=== PATIENT | male | born 1940 | race Caucasian/White ===

== ENCOUNTER → 2016-04-21 | Outpatient (CLI) | payer OTHER ==
[~2016-04-21] MED LIST: AMLO-114 PO; CILO100T PO; COLC0.6T54 PO; DOXA2TAB PO; ENAL10TA88 PO; GLIP5TAB11 PO; HYDR-4079 PO; HYDR25TA4 PO; METF750T PO; METO50TA16 PO; TAMS0.4C38 PO; THIA100T13 PO
[2016-04-21 14:37] LABS: BLOOD UREA NITROGEN 16 mg/dl (7-18); BUN/CREATININE RATIO 12.5 (10-20); CALCIUM 9.3 mg/dl (8.5-10.1); CARBON DIOXIDE 29 mmol/L (21-32); CHLORIDE 104 mmol/L (98-107); GLUCOSE 142 mg/dl (70-99); POTASSIUM 3.9 mmol/L (3.5-5.1); SODIUM 141 mmol/L (136-145)
[2016-04-21 15:36] LABS: ESTIMATED AVERAGE GLUCOSE 108 mg/dl; HA1C FLAG Normal (Normal)
== END | disposition home or self-care (01) ==
LOC: C.LABMFLN 12:06
PROVIDERS: ATTEND Family Medicine
DX: E11.9 Type 2 diabetes mellitus without complications (principal); I10 Essential (primary) hypertension

== ENCOUNTER → 2016-07-02 | Outpatient (CLI) | payer OTHER ==
[2016-07-02 13:16] LABS: HEMATOCRIT 34.8 % (42-52); MEAN CELL VOLUME 97.5 fL (80-100); MEAN CORPUSCULAR HEMOGLOBIN 33.6 pg (25-34); MEAN CORPUSCULAR HGB CONC 34.5 g/dl (32-36); MEAN PLATELET VOLUME 9.9 fL (7.4-10.4); PLATELET COUNT 180 K/uL (130-400); RED BLOOD COUNT 3.57 M/uL (4.7-6.1); WHITE BLOOD COUNT 4.81 K/uL (4.8-10.8)
[2016-07-02 13:27] LABS: BLOOD UREA NITROGEN 19 mg/dl (7-18); BUN/CREATININE RATIO 14.7 (10-20); CALCIUM 9.2 mg/dl (8.5-10.1); CARBON DIOXIDE 26 mmol/L (21-32); CHLORIDE 104 mmol/L (98-107); GLUCOSE 127 mg/dl (70-99); POTASSIUM 4.5 mmol/L (3.5-5.1); SODIUM 136 mmol/L (136-145)
== END | disposition home or self-care (01) ==
LOC: C.LABMFLN 10:07
PROVIDERS: ATTEND Internal Medicine Interventional Cardiology
DX: Z01.818 Encounter for other preprocedural examination (principal)

== ENCOUNTER → 2016-07-14 | Day surgery (SDC) | payer OTHER ==
[~2016-07-14] VITALS: Ht 175.3 cm; Wt 105.5 kg
[2016-07-14] VITALS (8 sets, daily range): BP systolic 150–176; BP diastolic 73–88; PULSE 58–77; TEMP 36.6–36.8; O2SAT 94–98; Ht 175.3 cm; Wt 105.5 kg
[~2016-07-14] MED LIST changes: +ACETAMINOPHEN 325 MG TAB PO PRN; +FENTANYL CITRATE INJ 50 MCG/1 ML 2 ML VIAL IV ONE; +FENTANYL CITRATE INJ 50 MCG/1 ML 2 ML VIAL ONE; +HEPARIN SOD (PORCINE) 1000 UNIT/ML 10 ML VIAL ONE; +IODIXANOL (VISIPAQUE) 270 MG/ML 150ML IV ONE; +LIDOCAINE HCL 1% 20 ML VIAL SQ ONE; +MIDAZOLAM HCL 1 MG/ML 2ML VIAL IV ONE; +MIDAZOLAM HCL 5 MG/ML 1 ML VIAL ONE; +NITROGLYCERIN 5 MG/ML 10 ML VIAL ONE; +NITROGLYCERIN/D5W 100MCG/ML 20ML SYR ONE; +NiCARDipine HCL INJ 2.5 MG/ML 10 ML AMP ONE; +SODIUM CHLORIDE 0.9% 1000ML 1,000 ML IV SCH; +SODIUM CHLORIDE 0.9% 1000ML IV SCH
--- NOTE | 2016-07-14 07:54 | History and Physical ---
History & Physical Date Jul 14, 2016. History of Present Illness The patient is a 75 year old male with complaints of claudication. Patient with intermittent claudication Pia class 3 symptoms for months. Previously evaluated with U/S, CTA which showed suggestion of right inflow disease, and severe SFA/popliteal disease with severe arterial insufficiency by HOOD. No history of lower extremity wounds or pain at rest. No prior peripheral interventions. Lonstanding non-insulin dependent diabetes. Remote smoker. Past Medical/Surgical History carotid stenosis htn hld obesity ckd (last SCr 1.3) PAD DM2 Additional History Hepatic Disease: No Endocrine Disorder: Yes Kidney Disease: Yes Hypertension: Yes Heart Disease: No Bleeding Tendencies: No Infectious Diseases: No Allergies Coded Allergies: No Known Allergies (Verified , 07/14/16) Home Medications Scheduled Amlodipine (Norvasc), 10 MG PO DAILY Cilostazol (Pletal), 100 MG PO BID Colchicine (Colchicine), 0.6 MG PO BID Doxazosin Mesylate (Cardura), 1 TAB PO HS Enalapril (Vasotec), 20 MG PO BID Glipizide (Glucotrol), 0.5 TAB PO DAILY Hydrochlorothiazide (Hctz), 1 TAB PO DAILY Metformin Hcl (Glucophage Er), 750 MG PO BID Metoprolol Tartrate (Lopressor) (Lopressor), 75 MG PO BID Tamsulosin Hcl (Flomax), 2 CAP PO HS Thiamine Hcl (Vitamin B-1), 100 MG PO DAILY Scheduled PRN Hydrocodone/Acetaminophen 10MG/325MG ([place] 10MG/325MG), 1-2 TABS PO Q4H PRN for Pain Physical Examination Skin: warm/dry Eyes: normal inspection ENT: normal ENT inspection Head: normocephalic Neck: supple Respiratory/Chest: lungs clear Cardiovascular: regular rate, rhythm, no edema, no murmur Abdomen / GI: normal bowel sounds, non tender Back: normal inspection Extremities: normal inspection Neurologic/Psych: no motor/sensory deficits, alert Addiitonal Comments: 2+ left femoral pulse diminished right femoral, popliteal, dp/pt Diagnosis PAD Claudication ASA Classification: ASA Class II Plan of Treatment Bilateral peripheral angiogram with possible intervention.
--- NOTE | 2016-07-14 08:03 | Procedure Note ---
Pre-Mod Sedation Assessment General Date of Moderate Sedation: Jul 14, 2016. Vital Signs: Vital Signs Past 12 Hours Date Time Temp Pulse Resp B/P Pulse Ox O2 Delivery O2 Flow Rate FiO2 07/14/16 07:57 36.7 58 20 169/81 98 Room Air 07/14/16 06:45 36.7 58 20 169/81 98 Room Air Review Cardiovascular: regular rate, rhythm, no edema Abdomen: normal bowel sounds, non tender, soft Lungs: lungs clear, normal breath sounds Airway Class: II Pre-Sedation Airway Assessment Oral Cavity: WNL Able to Visualize Vocal Cords: No Short Thick Neck: Yes Hx of Sleep Apnea: No Smoking Status: Former Smoker Mallampati Classification: Class III ASA Classification: Class II Procedure Planning Contraindications-for Mod Sed: None Yes Notes The planned sedation has been discussed with the patient and consent obtained. I have identified the patient, determined the appropriateness of sedation and have assessed the patient immediately prior to the procedure. All medicine(s) and interventions are by my order.
--- NOTE | 2016-07-14 09:44 | Procedure Note ---
Post-Mod Sedation Assessment General Date of Moderate Sedation Jul 14, 2016. Vital Signs: Vital Signs Past 12 Hours Date Time Temp Pulse Resp B/P Pulse Ox O2 Delivery O2 Flow Rate FiO2 07/14/16 07:57 36.7 58 20 169/81 98 Room Air 07/14/16 06:45 36.7 58 20 169/81 98 Room Air Review - Discharge Criteria Vital Signs Stable: Yes Alert/Oriented/Conversant: Yes Returned to Baseline Mental St: Yes Nausea Absent/Minimal: Yes Pain/Discomfort/Absent/Minimal: Yes Normal/Baseline Respirations: Yes Active Bleeding?: No Pt Received D/C Instructions: N/A Prescriptions Given: None Specific Proced. D/C Criteria Distal Pulses Present (Cardiac: Yes Groin site assessed-Card Cath: Yes Voided Prior To Discharge: N/A Discharged Patients Adult Escort/Transportation: Yes
--- NOTE | 2016-07-14 09:57 | [facility] Operative Report ---
Operative Report Operative Date Jul 14, 2016. Pre-Operative Diagnosis PAD Post-Operative Diagnosis PAD Procedure(s) Performed Bilateral Peripheral Angiogram Ultrasound guided Left VIDEO CONTROL OPERATOR access Mynx closure device placement Surgeon Dr. Ingram [employer] Surgeon(s) Gemma Randall Estimated Blood Loss 10 Findings Right lower extremity: Common iliac - Minimal disease External iliac - 50-60%, ostial stenosis Internal iliac - Mild diffuse, calcified disease VIDEO CONTROL OPERATOR - 95% focal calcified stenosis in mid segment Profunda - Minimal disease SFA - Ostial 30-40% stenosis, multiple calcified focal segments with up to 60% disease in the midsegment, 70-80% distal stenosis. Popliteal - Severe diffuse disease prior to complete mid segment occlusion. Fills distally via collaterals TPT - minimal disease AT - mild diffuse disease to foot PT - mild diffuse disease to foot Peroneal - moderate diffuse disease throughout Left lower extremity: Common iliac - Minimal disease External iliac - Minimal disease Internal iliac - Minimal disease VIDEO CONTROL OPERATOR - Minimal disease, OK for closure device placement Profunda - Minimal disease SFA - 30-40% ostial stenosis. Moderate focal calcified lesions up to 60% in the proximal to mid segment. Diffuse up to 90% distal stenosis. Popliteal - Mild diffuse disease TPT - minimal disease AT - minimal disease PT - Mild proximal disease Peroneal - moderate diffuse disease Summary: 1. Right lower extremity external iliac, VIDEO CONTROL OPERATOR and SFA/Popliteal disease with 3 vessel distal run-off 2. Left lower extremity SFA disease with 2 vessel distal run-off Recommendations: With severe VIDEO CONTROL OPERATOR disease recommend referral to vascular surgery for consideration of VIDEO CONTROL OPERATOR endarterectomy with possible fempop bypass/hybrid procedure. Fluids 130 Specimens None Drains None Anesthesia Moderate Complication(s) None Disposition Recovery Room / PACU Indications Pia Class III Claudication Description of Procedure Left VIDEO CONTROL OPERATOR accessed under ultrasound guidance. 5Fr sheath placed RIM catheter to engage right FILOMENA Glidewire placed to VIDEO CONTROL OPERATOR and catheter advanced to external iliac for imaging VIDEO CONTROL OPERATOR , distal right lower extremity. Mynx device placed for closure with manual hold. I attest to the content of the Intraoperative Record and any orders documented therein. Any exceptions are noted below.
--- NOTE | 2016-07-14 12:50 | Discharge Instructions ---
Discharge Instructions Procedure Procedure Date: Jul 14, 2016. Reason for Visit: Diabetes Mellitus. Discharge Discharge Date: Jul 14, 2016. Discharge Diagnosis: PAD Last Recorded Wt (Kilograms): 105.5 Anesthesia Post Anesthesia Instructions: If you have had IV Sedation: * Do not drive today. * Do not make important decisions or sign legal documents today. * Call surgeon for: 1. Temperature elevations greater than 101 degrees F. 2. Uncontrollable pain. 3. Excessive bleeding. 4. Persistent nausea and vomiting. 5. Medication intolerance (nausea, vomiting or rash). * For nausea and vomiting use only clear liquids such as: tea, soda, bouillon until nausea subsides, then gradually increase diet as tolerated. * If you have any concerns or questions, call your surgeon's office. If physician is unavailable and it is an emergency, call 911 or go to the nearest emergency room. Instructions Recommended Home Diet: resume previous diet Allergies: Coded Allergies: No Known Allergies (Verified , 07/14/16) Follow Up Additional Instructions: ACTIVITY RECOMMENDATIONS: It is common to feel weak and fatigue for a few days. * Do not drive or operate any motorized equipment for the next 2 days. * Limit stair usage (2 or 3 trips a day only) for the next three days. * Do not lift anything heavier than 10 pounds for the next three days. * Do not engage in vigorous exercise or any sports for the next five days. * You may shower the day after your procedure, but do not immerse the area for three days. Cleanse the site gently with soap and water. SPECIAL CARE INSTRUCTIONS: * You may replace the pressure dressing or band-aid the morning after the procedure. * After your procedure, it is normal to have a small bruise or small lump at the site. Examine your site daily for any change in the bruise or lump, redness, swelling, drainage or numbness. Notify your doctor if any change. BLEEDING: * If there is a small amount of bleeding at the site, lie down and apply firm pressure with a clean cloth for ten minutes. When the bleeding stops, lie quietly keeping the procedure limb straight for six hours. Notify your doctor as soon as possible. * If the bleeding does not stop after ten minutes or if there is a large amount of bleeding or spurting, call 911 immediately. Continue to lie down and hold firm pressure until help arrives. SKIN IRRITATION: * You may experience some redness and/or swelling in the area where radiation was administered. If any skin irritation occurs, please contact your family physician. FOLLOW UP VISIT: Keep any scheduled doctor appointments. Follow-up with: [address] Ingram. Paz Freedman Recommendations: Call your doctor if: * Temperature above 101 degrees * Pain not relieved by pain medicine ordered * There is increased drainage or redness from any incision * You have any unanswered questions or concerns. Your Doctors Instructions noted above were prepared by provider Negro Ingram. Patient Signature Section: Patient Instructions Signature Page Al Bañuelos Patient (or Guardian) Signature/Date: I have read and understand the instructions given to me by my caregivers. Caregiver/RN/Doctor Signature/Date: The above-named patient and/or guardian has received patient instructions on this date. + Original Patient Signature Page (only) stays with chart. Please make copy for patient.
== END | disposition home or self-care (01) ==
LOC: C.ACU 06:23
PROVIDERS: ATTEND Internal Medicine Interventional Cardiology
DX: I70.201 Unspecified atherosclerosis of native arteries of extremities, right leg (principal); E11.9 Type 2 diabetes mellitus without complications; I12.0 Hypertensive chronic kidney disease with stage 5 chronic kidney disease or end stage renal disease; N18.9 Chronic kidney disease, unspecified; E78.5 Hyperlipidemia, unspecified; E66.9 Obesity, unspecified

== ENCOUNTER → 2016-11-12 | Outpatient (CLI) | payer OTHER ==
[~2016-11-12] MED LIST changes: -ACETAMINOPHEN 325 MG TAB PO PRN; -FENTANYL CITRATE INJ 50 MCG/1 ML 2 ML VIAL IV ONE; -FENTANYL CITRATE INJ 50 MCG/1 ML 2 ML VIAL ONE; -HEPARIN SOD (PORCINE) 1000 UNIT/ML 10 ML VIAL ONE; -IODIXANOL (VISIPAQUE) 270 MG/ML 150ML IV ONE; -LIDOCAINE HCL 1% 20 ML VIAL SQ ONE; -MIDAZOLAM HCL 1 MG/ML 2ML VIAL IV ONE; -MIDAZOLAM HCL 5 MG/ML 1 ML VIAL ONE; -NITROGLYCERIN 5 MG/ML 10 ML VIAL ONE; -NITROGLYCERIN/D5W 100MCG/ML 20ML SYR ONE; -NiCARDipine HCL INJ 2.5 MG/ML 10 ML AMP ONE; -SODIUM CHLORIDE 0.9% 1000ML 1,000 ML IV SCH; -SODIUM CHLORIDE 0.9% 1000ML IV SCH
== END | disposition home or self-care (01) ==
LOC: C.LABMFLN 10:25
PROVIDERS: ATTEND Radiology Radiation Oncology
DX: C61 Malignant neoplasm of prostate (principal)

== ENCOUNTER → 2016-12-28 | Outpatient (CLI) | payer OTHER ==
[2016-12-28 18:22] LABS: ALT/SGPT 19 U/L (12-78); BLOOD UREA NITROGEN 16 mg/dl (7-18); BUN/CREATININE RATIO 13.2 (10-20); CALCIUM 9.9 mg/dl (8.5-10.1); CARBON DIOXIDE 27 mmol/L (21-32); CHLORIDE 102 mmol/L (98-107); CHOLESTEROL 123 mg/dl (0-200); GLUCOSE 143 mg/dl (70-99); POTASSIUM 4.5 mmol/L (3.5-5.1); SODIUM 135 mmol/L (136-145); TRIGLYCERIDES 107 mg/dl (0-150); VERY LOW DENSITY LIPOPROT CALC 21 mg/dl
[2016-12-28 18:25] LABS: CHOLESTEROL/HDL RATIO 2.9; HDL CHOLESTEROL 43 mg/dl
[2016-12-29 06:50] LABS: ESTIMATED AVERAGE GLUCOSE 143 mg/dl; HA1C FLAG Normal (Normal)
== END | disposition home or self-care (01) ==
LOC: C.LABMFLN 12:51
PROVIDERS: ATTEND Family Medicine
DX: E11.9 Type 2 diabetes mellitus without complications (principal); E78.00 Pure hypercholesterolemia, unspecified; I10 Essential (primary) hypertension

== ENCOUNTER → 2017-07-15 | Outpatient (CLI) | payer OTHER ==
[~2017-07-15] MED LIST changes: -THIA100T13 PO; +THIA100T14 PO
[2017-07-15 19:06] LABS: BLOOD UREA NITROGEN 72 mg/dl (7-18); CALCIUM 9.4 mg/dl (8.5-10.1); CARBON DIOXIDE 22 mmol/L (21-32); CREATININE 2.54 mg/dl (0.60-1.40); GLUCOSE 93 mg/dl (70-99); POTASSIUM 3.8 mmol/L (3.5-5.1); SODIUM 136 mmol/L (136-145)
== END | disposition home or self-care (01) ==
LOC: C.LABMFLN 14:55
PROVIDERS: ATTEND Family Medicine
DX: E86.0 Dehydration (principal); N17.9 Acute kidney failure, unspecified; R63.4 Abnormal weight loss

== ENCOUNTER → 2017-07-21 | Outpatient (CLI) | payer OTHER ==
[2017-07-21 17:56] LABS: BLOOD UREA NITROGEN 29 mg/dl (7-18); CALCIUM 9.4 mg/dl (8.5-10.1); CARBON DIOXIDE 25 mmol/L (21-32); GLUCOSE 121 mg/dl (70-99); POTASSIUM 4.3 mmol/L (3.5-5.1); SODIUM 136 mmol/L (136-145)
== END | disposition home or self-care (01) ==
LOC: C.LABMFLN 13:47
PROVIDERS: ATTEND Family Medicine
DX: N17.9 Acute kidney failure, unspecified (principal)

== ENCOUNTER → 2017-08-05 | Outpatient (CLI) | payer OTHER ==
[2017-08-05 18:22] LABS: BLOOD UREA NITROGEN 13 mg/dl (7-18); CALCIUM 9.6 mg/dl (8.5-10.1); CARBON DIOXIDE 27 mmol/L (21-32); CREATININE 1.44 mg/dl (0.60-1.40); GLUCOSE 120 mg/dl (70-99); POTASSIUM 4.3 mmol/L (3.5-5.1); SODIUM 138 mmol/L (136-145)
== END | disposition home or self-care (01) ==
LOC: C.LABMFLN 11:04
PROVIDERS: ATTEND Family Medicine
DX: E86.0 Dehydration (principal); N17.9 Acute kidney failure, unspecified